=== PATIENT | female | born 1960 | race Native Hawaiian/Other Pacific Islander ===

== ENCOUNTER 2019-01-13 09:09 | Emergency (ER) | payer OTHER ==
[~2019-01-13] VITALS: Ht 149.9 cm; Wt 72.6 kg
[2019-01-13 11:36] VITALS: BP 142/74; TEMP 97.8
== END 2019-01-13 11:38 | disposition home or self-care (01) ==
LOC: ED 09:09
DX: J44.1 Chronic obstructive pulmonary disease with (acute) exacerbation (principal); J20.9 Acute bronchitis, unspecified
CPT/HCPCS: 94664; 96372; 99283; J0696; J2930

== ENCOUNTER 2019-05-09 12:45 | Emergency (ER) | payer OTHER ==
[~2019-05-09] VITALS: Ht 149.9 cm; Wt 72.6 kg
[2019-05-09 13:47] LABS: PLATELET COUNT 193 K/uL (152-353)
[2019-05-09 14:08] LABS: POTASSIUM 3.1 mmol/L (3.6-5.2)
[2019-05-09 15:30] VITALS: BP 132/86; TEMP 98.2
== END 2019-05-09 15:30 | disposition home or self-care (01) ==
LOC: ED 12:45
PROVIDERS: Family Medicine
DX: J20.9 Acute bronchitis, unspecified (principal); J06.9 Acute upper respiratory infection, unspecified; E87.6 Hypokalemia
CPT/HCPCS: 80053; 85027; 94664; 96372; 99283; J0696; J2930

== ENCOUNTER 2019-05-15 10:25 | Emergency (ER) | payer OTHER ==
[~2019-05-15] VITALS: Ht 149.9 cm; Wt 68.0 kg
[2019-05-15 10:30] VITALS: BP 159/89; TEMP 98.6
== END 2019-05-15 11:20 | disposition home or self-care (01) ==
LOC: ED 10:25
DX: J20.9 Acute bronchitis, unspecified (principal); Z72.0 Tobacco use
CPT/HCPCS: 99282

== ENCOUNTER 2019-10-15 11:56 | Emergency (ER) | payer OTHER ==
[~2019-10-15] VITALS: Ht 149.9 cm; Wt 68.0 kg
[2019-10-15 12:48] VITALS: BP 138/84; TEMP 98.6
== END 2019-10-15 12:51 | disposition home or self-care (01) ==
LOC: ED 11:56
DX: R51 Headache (principal)
CPT/HCPCS: 96372; 99283; J0696; J1885